=== PATIENT | female | born 1965 | race Caucasian/White ===

== ENCOUNTER 2017-12-25 08:39 | Day surgery (SDC) | payer OTHER ==
--- NOTE | 2017-12-22 10:38 | HP ---
Admitting History and Physical - Primary Care Physician PCP: Otf Humphrey - Admission Chief Complaint: pre-op for right shoulder scope History of Present Illness: patient is a 52 -year-old female, with a past medical history of GERD and osteoarthritis. patient is a planned right shoulder compression for 12/25/[address] Bishop. She reports feeling well does report pain 6 out of 10 to right shoulder that is relieved with naproxen. patient denies any recent illnesses or hospitalizations. History Source: Patient Limitations to Obtaining History: No Limitations - Past Medical History Gastrointestinal: Yes: GERD - Alcohol/Substance Use History of Substance Use: reports: None - Social History Usual Living Arrangement: Yes: With Spouse ADL: Independent History of Recent Travel: No Family Disease History - Family Disease History Family History: Denies Review of Systems - Review of Systems Constitutional: reports: No Symptoms Eyes: reports: No Symptoms HENT: reports: No Symptoms Neck: reports: No Symptoms Cardiovascular: reports: No Symptoms Respiratory: reports: No Symptoms Gastrointestinal: reports: No Symptoms Genitourinary: reports: No Symptoms Musculoskeletal: reports: Joint Pain (right shoulder) Integumentary: reports: No Symptoms Neurological: reports: No Symptoms Endocrine: reports: No Symptoms Hematology/Lymphatic: reports: No Symptoms Psychiatric: reports: No Symptoms Physical Examination Constitutional: Yes: Well Nourished, No Distress, Calm Eyes: Yes: WNL, Conjunctiva Clear, EOM Intact HENT: Yes: WNL, Atraumatic, Normocephalic Neck: Yes: WNL, Supple, Trachea Midline Cardiovascular: Yes: WNL, Regular Rate and Rhythm, S1, S2 Respiratory: Yes: WNL, Regular, CTA Bilaterally Gastrointestinal: Yes: WNL, Normal Bowel Sounds, Soft ...Rectal Exam: Yes: Deferred Renal/: Yes: WNL Musculoskeletal: Yes: Other (right shoulder pain upon PROM) Edema: No Peripheral Pulses WNL: No Peripheral Pulses: Left Radial: 4+, Right Radial: 4+, Left Doralis Pedis: 3+, Right Dorsalis Pedis: 3+, Left Femoral: 3+, Right Femoral: 3+ Integumentary: Yes: WNL Neurological: Yes: WNL, Alert, Oriented ...Motor Strength: WNL Psychiatric: Yes: WNL, Alert, Oriented Labs: reviewed 12/08/17 Imaging - Results EKG: Report Reviewed, Image Reviewed, Other (nsr) Assessment/Plan patient is a 52-year-old female with a past medical history of osteoporosis and GERD. Patient presents for a planned right shoulder decompression. labs and ekg reviewed Patient is medically optimized for procedure
[2017-12-23 10:50] VITALS: BMI 34.1
[2017-12-25 09:02] VITALS: TEMP 97.7
[2017-12-25] MEDS ORDERED: ROPIVACAINE HCL 0.5% 30ML VIAL ONE (09:46)
[2017-12-25] MEDS ORDERED: MIDAZOLAM HCL 2 MG/2 ML SINGLE DOSE VIAL ONE (09:46)
[2017-12-25] MEDS ORDERED: DEXAMETHASONE SOD PHOSPHATE/PF 10 MG/ML SDV ONE (09:46)
[2017-12-25] MEDS ORDERED: ONDANSETRON 4 MG/2 ML VIAL IVPUSH PRN (10:27)
[2017-12-25] MEDS ORDERED: ACETAMINOPHEN 325 MG TABLET (FP) PO PRN (10:27)
[2017-12-25] MEDS ORDERED: oxyCODONE HCL 5 MG TABLET PO PRN ×2 (10:27)
[2017-12-25] MEDS ORDERED: PROMETHAZINE HCL 25 MG/1 ML VIAL IVPUSH PRN (10:27)
[2017-12-25] MEDS ORDERED: LACTATED RINGERS SOLUTION 1,000 ML IV SCH (10:30)
[2017-12-25] MEDS ORDERED: ONDANSETRON 4 MG/2 ML VIAL ONE (11:17)
[2017-12-25] MEDS ORDERED: DEXAMETHASONE SOD PHOSPHATE 4 MG/1 ML VIAL ONE (11:17)
[2017-12-25] MEDS ORDERED: PROPOFOL 20 ML ONE ×4 (11:17→12:33)
[2017-12-25] MEDS ORDERED: ceFAZolin SODIUM 1 GM VIAL ONE (11:17)
[2017-12-25] MEDS ORDERED: KETOROLAC TROMETHAMINE 30 MG/1 ML VIAL ONE (11:35)
[2017-12-25] MEDS ORDERED: BENZOIN/ALOE VERA/STORAX/TOLU 58 ML BOTTLE ONE (12:45)
--- NOTE | 2017-12-25 12:49 | OP ---
Operative Note - Note: Operative Date: 12/25/17 Pre-Operative Diagnosis: Right shoulder impingement syndrome and rotator cuff tear Operation: Right shoulder open: 1. Neer decompression. 2. Иван procedure. 3. Rotator cuff tear Post-Operative Diagnosis: Same as Pre-op Surgeon: Aquiles Bishop Anesthesiologist/RESORT MANAGER: Brooks Soliz Anesthesia: MAC Specimens Removed: Distal clavicle. Acromioplasty Estimated Blood Loss (mls): 30 Fluid Volume Replaced (mls): 750 Operative Report Dictated: Yes
[2017-12-25 15:52] VITALS: BP 115/71; PULSE 84
--- NOTE | 2017-12-28 20:24 | OP ---
DATE OF OPERATION: 12/25/2017 SURGEON: Aqiules Bishop MD SUPERVISOR SCRAP PREPARATION: Benito Bishop MD PREOPERATIVE DIAGNOSIS: Left impingement syndrome, shoulder with rotator cuff tear. POSTOPERATIVE DIAGNOSIS: Left impingement syndrome, shoulder with rotator cuff tear. OPERATION PERFORMED: 1. Excision arthroplasty clavicle (Иван). 2. Acetabuloplasty. 3. Transection of acromioclavicular ligament. 4. Repair of rotator cuff for chronic tear. ANESTHESIA: General with scalene block. ANTIBIOTICS GIVEN: Kefzol 2 g. PROCEDURE: Patient correctly identified, brought into the operating room. Left upper extremity was prepped, re-draped in the routine manner with Betadine scrub solution, wiped off with alcohol, DuraPrep applied. The incision was made at the tip of the acromion to the tip of the coracoid. This in the lines of Lan. The dissection was taken to the level of the muscle. A plane was developed so that a Hohmann retractor was placed around the superior aspect of the clavicle at the distal end and another sharp Hohmann placed in the inferior aspect. The AC joint identified. This was thickened and osteoarthritic. The joint was incised, and a beveled cut into the distal one-third bone of the clavicle made to osteotomize a 1-cm segment of bone with a beveled construct to decompress the tunnel of the rotator cuff. Once this had been performed, at the same level of the joint, the muscle was using Hohmann's and peanuts. The AC ligament was clearly identified and incised using a 15 blade. A protective Padilla dissector was placed deep to the CA ligament. This was extended up into the level of the shoulder joint. The subacromial space remained extraordinarily tight, could barely enter a finger into the space. Using a blunt Hohmann placed at the tip under the undersurface of the acromion and leaving the humeral head downwards. An appropriate excision of the acromion performed. This was parallel to the superior surface of the acromion to thus raise the roof of the shoulder joint itself. This made an enormous difference to the freeing of the subacromial space. Then, the rotator cuff was inspected. A small, chronic old tear was noted. The edges were excised using a 15-blade knife, and a number 1 Vicryl suture was utilized in order to approximate the edges. The tension was well relaxed even with the arm in a neutral position. The wounds were thoroughly lavaged. All hemostasis was achieved. Capsule of AC joint imbricating itself and closing this area. The deltoid, which was left out of the picture, 1 suture was placed at the top into the deltoid to prevent splitting. Solid closure achieved, subcutaneous 3-0 Vicryl, skin 3-0 Monocryl with Steri-Strips. Operation went well. No complications. MD DIDIER Ziegler/[id number] MTDD
--- NOTE | 2017-12-29 16:42 | PATH ---
Surgical Pathology Report Patient Name: NICA JUNG [facility]. Rec. #: [id number] /Age/Gender: 1965 (Age: 52) / F Account: [id number] Location: [facility] AMBULATORY Taken: 12/25/2017 Received: 12/25/2017 Reported: 12/29/2017 Physicians: Aquiles Bishop M.D. Specimen(s) Received RIGHT CLAVICLE Clinical History Impingement right shoulder Final Diagnosis CLAVICLE, RIGHT, SHOULDER NEER DECOMPRESSION: FRAGMENT OF BONE WITHOUT SIGNIFICANT PATHOLOGIC FINDINGS AND DENSE FIBROCONNECTIVE TISSUE. Electronically Signed Carmen Valenzuela M.D. Gross Description Received in formalin labeled "right clavicle," is a 3.5 x 3.5 x 1.0 cm aggregate of 3 phelps, irregular fragments of bone and soft tissue. Grades 9 Through 12 Teacher sections are submitted in one cassette, following decalcification. /12/28/2017 saudi12/28/2017
== END 2017-12-25 15:15 | disposition home or self-care (01) ==
LOC: FASU 08:39
PROVIDERS: ATTEND Orthopaedic Surgery Orthopaedic Surgery of the Spine
PROC: 0RNJ0ZZ Release Right Shoulder Joint, Open Approach (ICD-10-PCS; 2017-12-25)
PROC: 0PB90ZZ Excision of Right Clavicle, Open Approach (ICD-10-PCS; 2017-12-25)
PROC: 0LQ10ZZ Repair Right Shoulder Tendon, Open Approach (ICD-10-PCS; principal; 2017-12-25 11:52)
DX: M75.42 Impingement syndrome of left shoulder (principal); M75.102 Unspecified rotator cuff tear or rupture of left shoulder, not specified as traumatic
CPT/HCPCS: 84703; 88304-TC; 88311-TC; 94760